=== PATIENT | male | born 1985 | race Caucasian/White ===

== ENCOUNTER 2016-11-03 13:50 | Emergency (ER) | payer SELFPAY ==
[~2016-11-03] VITALS: Ht 170.2 cm; Wt 59.2 kg
[~2016-11-03 13:50] MED LIST: CLEOCIN300 MG PO; NAPROSYN500 MG PO; NAPROXEN500 MG PO; NO HOME MEDS; ULTRAM50 MG PO
[2016-11-03] MEDS ORDERED: MOTRIN800 MG PO (14:51)
[2016-11-03 15:04] VITALS: BP 120/67
== END 2016-11-03 15:09 | disposition home or self-care (01) ==
LOC: EME 13:50
DX: S99.912A Unspecified injury of left ankle, initial encounter (principal); R60.0 Localized edema; W11.XXXA Fall on and from ladder, initial encounter; F17.200 Nicotine dependence, unspecified, uncomplicated
CPT/HCPCS: 73610; 99281; 99284

== ENCOUNTER 2017-10-02 10:04 | Emergency (ER) | payer OTHER ==
[~2017-10-02] VITALS: Ht 170.2 cm; Wt 59.8 kg
[~2017-10-02 10:04] MED LIST changes: +MOTRIN800 MG PO
[2017-10-02 12:30] VITALS: BP 105/78
== END 2017-10-02 12:31 | disposition home or self-care (01) ==
LOC: EME 10:04
DX: S29.011A Strain of muscle and tendon of front wall of thorax, initial encounter (principal); X58.XXXA Exposure to other specified factors, initial encounter; F17.200 Nicotine dependence, unspecified, uncomplicated
CPT/HCPCS: 71101; 99281; 99283

== ENCOUNTER 2017-12-03 14:40 | Emergency (ER) | payer OTHER ==
[~2017-12-03] VITALS: Ht 167.6 cm; Wt 63.9 kg
[2017-12-03] MEDS ORDERED: CLEOCIN300 MG PO (15:44)
[2017-12-03] MEDS ORDERED: NAPROSYN500 MG PO (15:44)
[2017-12-03] MEDS ORDERED: ULTRAM50 MG PO (15:44)
[2017-12-03 16:01] VITALS: BP 112/84
== END 2017-12-03 16:04 | disposition home or self-care (01) ==
LOC: EME 14:40
DX: K02.9 Dental caries, unspecified (principal); K04.7 Periapical abscess without sinus; F17.200 Nicotine dependence, unspecified, uncomplicated; Z88.0 Allergy status to penicillin

== ENCOUNTER 2018-01-05 10:57 | Emergency (ER) | payer OTHER ==
[~2018-01-05] VITALS: Ht 170.2 cm; Wt 65.3 kg
[2018-01-05] MEDS ORDERED: VENTOLIN HFA18 GM IH (12:34)
[2018-01-05] MEDS ORDERED: CLINDAMYCIN HC300 MG PO (12:34)
[2018-01-05 13:08] VITALS: BP 116/68
== END 2018-01-05 13:10 | disposition home or self-care (01) ==
LOC: EME 10:57
PROC: 3E0T3BZ Introduction of Anesthetic Agent into Peripheral Nerves and Plexi, Percutaneous Approach (ICD-10-PCS; principal; 2018-01-05)
DX: K08.89 Other specified disorders of teeth and supporting structures (principal); J45.909 Unspecified asthma, uncomplicated; F17.200 Nicotine dependence, unspecified, uncomplicated; Z88.0 Allergy status to penicillin
CPT/HCPCS: 99281; 99283